=== PATIENT | male | born 1965 | race Caucasian/White ===

== ENCOUNTER 2016-09-22 13:37 | Inpatient (IN) | payer OTHER ==
[~2016-09-22] VITALS: Ht 182.9 cm; Wt 84.9 kg
[2016-09-22] VITALS (196 sets, daily range): BP systolic 86; BP diastolic 57; PULSE 60; TEMP 97.3; O2SAT 92–100
[2016-09-22 15:20] LABS: MEAN CELL VOLUME 90 fl (80.0-100.0); MEAN CORPUSCULAR HGB CONC 33 g/dl (33.0-37.0); MEAN PLATELET VOLUME 10.6 fl (7.4-10.4); PLATELET COUNT 185 K/mm3 (130-400); RED BLOOD COUNT 3.27 M/mm3 (4.20-5.60); REDCELL DISTRIBUTION WIDTH-CV 16.6 % (11.5-14.5); WHITE BLOOD COUNT 10.7 K/mm3 (4.8-10.8)
[2016-09-22 15:22] LABS: ADD PATHOLOGY DIFF REVIEW NO; HEMATOCRIT 29.4 % (42.0-52.0); HEMOGLOBIN 9.7 g/dl (13.5-18.0); MEAN CORPUSCULAR HEMOGLOBIN 30 pg (27.0-31.0)
[2016-09-22 16:24] LABS: ADJUSTED CALCIUM 9.2 mg/dL (8.4-10.2); ALBUMIN 2.7 gm/dL (3.5-5.0); BILIRUBIN,TOTAL 1.1 mg/dL (0.0-1.0); CALCIUM 8.2 mg/dL (8.4-10.2); CREATININE, serum 0.63 mg/dL (0.66-1.25); POTASSIUM 4.4 mmol/L (3.4-5.0); TOTAL PROTEIN 6.7 gm/dL (6.4-8.2)
[2016-09-22 16:36] LABS: TROPONIN-I 0.579 ng/mL (0.000-0.034)
[2016-09-22 16:51] LABS: BAND 24 % (0-10); METAMYELOCYTE 2 % (0-0); MYELOCYTE 1 % (0-0); TOTAL CELLS COUNTED 100
[2016-09-22 16:52] LABS: ANISOCYTOSIS 1+; DOHLE BODIES PRESENT; POLYCHROMASIA 1+; TOXIC GRANULATION PRESENT
[2016-09-22 16:54] LABS: NEUTROPHILS 68 % (42.0-75.2)
[2016-09-22 17:43] LABS: ERYTHROCYTE SEDIMENTATION RATE 61 mm/hr (0-30)
[2016-09-22 18:57] LABS: PH 5 (5-8); SQUAMOUS EPITHELIAL 0-2 /hpf; URINE APPEARANCE Clear; URINE BACTERIA None Seen /hpf; URINE BILIRUBIN Negative (NEGATIVE); URINE BLOOD 1+ (NEGATIVE); URINE COLOR Yellow; URINE GLUCOSE 3+ (NEGATIVE); URINE KETONE Negative (NEGATIVE); URINE RBC 0-2 /hpf; URINE UROBILINOGEN Negative (NEGATIVE); URINE WBC 0-2 /hpf
[2016-09-22] MEDS ORDERED: PANCREAZE 437501 ECC PO (19:31)
[2016-09-22 21:47] LABS: ALBUMIN 2.3 gm/dL (3.5-5.0); BILIRUBIN,TOTAL 0.9 mg/dL (0.0-1.0); CALCIUM 7.6 mg/dL (8.4-10.2); CREATININE, serum 0.6 mg/dL (0.66-1.25); MAGNESIUM 1.9 mg/dL (1.6-2.3); PHOSPHOROUS 2.9 mg/dL (2.5-4.5); POTASSIUM 3.3 mmol/L (3.4-5.0); TOTAL PROTEIN 5.8 gm/dL (6.4-8.2)
[2016-09-22 21:59] LABS: ALLEN TEST YES; ARTERIAL BLD GAS O2 SATURATION 95.1 % (92-100); ARTERIAL BLD GAS TCO2 CT 24.5; ARTERIAL BLOOD GAS BASE EXCESS -0.2 (-2-2); ARTERIAL BLOOD GAS HCO3 23.5 meq/L (22-26); ARTERIAL BLOOD GAS PO2 76.4 mmHg (80-100); ARTERIAL BLOOD GAS pH 7.45 (7.35-7.45); ATS? YES; OXYHEMOGLOBIN 94.5 %
[2016-09-23] VITALS (795 sets, daily range): BP systolic 93–155; BP diastolic 63–73; PULSE 55–75; TEMP 96.7–99.8; O2SAT 69–100
[2016-09-23 05:48] LABS: MEAN CELL VOLUME 91 fl (80.0-100.0); MEAN CORPUSCULAR HGB CONC 32 g/dl (33.0-37.0); MEAN PLATELET VOLUME 10.6 fl (7.4-10.4); PLATELET COUNT 205 K/mm3 (130-400); REDCELL DISTRIBUTION WIDTH-CV 17.1 % (11.5-14.5); WHITE BLOOD COUNT 15.5 K/mm3 (4.8-10.8)
[2016-09-23 05:50] LABS: HEMATOCRIT 26.4 % (42.0-52.0); HEMOGLOBIN 8.5 g/dl (13.5-18.0); MEAN CORPUSCULAR HEMOGLOBIN 29 pg (27.0-31.0)
[2016-09-23 06:04] LABS: ADJUSTED CALCIUM 8.9 mg/dL (8.4-10.2); ALBUMIN 2.2 gm/dL (3.5-5.0); BILIRUBIN,TOTAL 0.9 mg/dL (0.0-1.0); CALCIUM 7.5 mg/dL (8.4-10.2); CREATININE, serum 0.61 mg/dL (0.66-1.25); POTASSIUM 4.3 mmol/L (3.4-5.0); TOTAL PROTEIN 5.6 gm/dL (6.4-8.2)
[2016-09-23 12:21] LABS: CALCIUM 7.5 mg/dL (8.4-10.2); CREATININE, serum 0.54 mg/dL (0.66-1.25)
[2016-09-23 12:34] LABS: TROPONIN-I 0.419 ng/mL (0.000-0.034)
[2016-09-23 18:05] LABS: CALCIUM 7.7 mg/dL (8.4-10.2); CREATININE, serum 0.54 mg/dL (0.66-1.25); POTASSIUM 4.3 mmol/L (3.4-5.0)
[2016-09-24] VITALS (10 sets, daily range): BP systolic 106–129; BP diastolic 46–79; PULSE 56–73; TEMP 98.2–98.7
[2016-09-24 08:52] LABS: MEAN CELL VOLUME 91 fl (80.0-100.0); MEAN CORPUSCULAR HGB CONC 32 g/dl (33.0-37.0); MEAN PLATELET VOLUME 10.7 fl (7.4-10.4); PLATELET COUNT 233 K/mm3 (130-400); RED BLOOD COUNT 3.22 M/mm3 (4.20-5.60); REDCELL DISTRIBUTION WIDTH-CV 17.1 % (11.5-14.5); WHITE BLOOD COUNT 10.7 K/mm3 (4.8-10.8)
[2016-09-24 08:56] LABS: ADD PATHOLOGY DIFF REVIEW NO; HEMATOCRIT 29.2 % (42.0-52.0); HEMOGLOBIN 9.4 g/dl (13.5-18.0); MEAN CORPUSCULAR HEMOGLOBIN 29 pg (27.0-31.0)
[2016-09-24 09:07] LABS: ADJUSTED CALCIUM 9.2 mg/dL (8.4-10.2); ALANINE AMINOTRANSFERASE 53 U/L (21-72); ALBUMIN 2.3 gm/dL (3.5-5.0); ALKALINE PHOSPHATASE 834 U/L (50-136); ANION GAP 5 mmol/L (7-16); BILIRUBIN,TOTAL 0.9 mg/dL (0.0-1.0); BLOOD UREA NITROGEN 15 mg/dL (9-20); CALCIUM 7.8 mg/dL (8.4-10.2); CARBON DIOXIDE 28 mmol/L (22-30); CHLORIDE 102 mmol/L (98-107); CREATININE, serum 0.54 mg/dL (0.66-1.25); GLUCOSE 184 mg/dL (74-106); POTASSIUM 4.3 mmol/L (3.4-5.0); SODIUM 135 mmol/L (137-145)
[2016-09-24 09:12] LABS: AMYLASE < 30 U/L (30-110); LIPASE < 10 U/L (23-300)
[2016-09-24 10:12] LABS: BAND 21 % (0-10); BASOPHIL 1 % (0-2); EOSINOPHIL 1 % (0-4); NEUTROPHILS 62 % (42.0-75.2); TOTAL CELLS COUNTED 100
[2016-09-24 10:19] LABS: PLATELET ESTIMATE NORMAL (NORMAL)
[2016-09-24 14:06] LABS: HEMATOCRIT 27.6 % (42.0-52.0); HEMOGLOBIN 9.1 g/dl (13.5-18.0); MEAN CELL VOLUME 89 fl (80.0-100.0); MEAN CORPUSCULAR HEMOGLOBIN 29 pg (27.0-31.0); MEAN CORPUSCULAR HGB CONC 33 g/dl (33.0-37.0); MEAN PLATELET VOLUME 10.2 fl (7.4-10.4); PLATELET COUNT 206 K/mm3 (130-400); RED BLOOD COUNT 3.09 M/mm3 (4.20-5.60); REDCELL DISTRIBUTION WIDTH-CV 16.9 % (11.5-14.5); WHITE BLOOD COUNT 10.7 K/mm3 (4.8-10.8)
[2016-09-24 14:11] LABS: INR 1.1 (0.8-3.0)
[2016-09-24 14:14] LABS: PARTIAL THROMBOPLASTIN TIME 27.2 SECONDS (26.0-37.0)
[2016-09-24 14:15] LABS: CALCIUM 7.7 mg/dL (8.4-10.2); CREATININE, serum 0.5 mg/dL (0.66-1.25); POTASSIUM 3.7 mmol/L (3.4-5.0)
[2016-09-25 02:47] VITALS: BP 129/80; PULSE 70; TEMP 98.5
[2016-09-25 08:24] VITALS: BP 119/70; PULSE 63; TEMP 98.1
[2016-09-25] MEDS ORDERED: ASPIRIN E.C. 8181 MG PO (08:46)
[2016-09-25] MEDS ORDERED: COREG 6.256.25 MG/TA PO (08:46)
[2016-09-25 10:51] LABS: CALCIUM 7.9 mg/dL (8.4-10.2); CREATININE, serum 0.54 mg/dL (0.66-1.25); POTASSIUM 4.2 mmol/L (3.4-5.0)
[2016-09-25] MEDS ORDERED: VASOTEC 10M10 MG/TAB PO (10:59)
[2016-09-25 12:07] VITALS: BP 107/66; PULSE 64; TEMP 98.4
[2016-09-25] MEDS ORDERED: LEVEMIR FLEX100 U/ML SQ (12:19)
[2016-09-25] MEDS ORDERED: NOVOLOG FLEX100 U/ML SQ (12:19)
== END 2016-09-25 16:45 | disposition home or self-care (01) | DRG 637 ==
LOC: COL.ER 13:37 → ICU 19:48 → MEDICAL 09-23 16:56
PROVIDERS: Emergency Medicine; Family Medicine; Internal Medicine Cardiovascular Disease
PROC: B2111ZZ Fluoroscopy of Multiple Coronary Arteries using Low Osmolar Contrast (ICD-10-PCS; principal; 2016-09-24)
PROC: 4A023N7 Measurement of Cardiac Sampling and Pressure, Left Heart, Percutaneous Approach (ICD-10-PCS; 2016-09-24)
DX: E13.10 Other specified diabetes mellitus with ketoacidosis without coma (principal); I21.4 Non-ST elevation (NSTEMI) myocardial infarction; I50.21 Acute systolic (congestive) heart failure; K86.1 Other chronic pancreatitis; I11.0 Hypertensive heart disease with heart failure; Z87.891 Personal history of nicotine dependence; Z79.4 Long term (current) use of insulin
CPT/HCPCS: 99223-AI; 99232-AI; 99233-AI; 99239; A4315; A9502; C1760; J1650; J1815; J1885; J2250; J2405; J2543; J2785; J3010; J7030; J7040; J7050; Q9967